=== PATIENT | male | born 1990 | race Caucasian/White ===

== ENCOUNTER 2017-12-10 08:45 | Emergency (ER) | payer OTHER ==
[2017-12-10 08:53] VITALS: BP 128/68
[2017-12-10] MEDS ORDERED: cefTRIAXone VIAL(*) 1,000 MG VIAL IM ONE (10:20)
[2017-12-10] MEDS ORDERED: Lidocaine 1% MPF* 2 ML VIAL INJ ONE (10:21)
--- NOTE | 2017-12-10 10:22 | UC ---
General HPI - HPI Summary HPI Summary: here for a rocephin shot he is on a 7 day course of Rocephin for treatment of Gonorrhea-- - History of Current Complaint Chief Complaint: UCGeneralIllness Stated Complaint: MEDICATION Time Seen by Provider: 12/10/17 10:17 Hx Obtained From: Patient Onset Severity: Moderate - Allergy/Home Medications Allergies/Adverse Reactions: Allergies Allergy/AdvReac Type Severity Reaction Status Date / Time Sulfa Antibiotics Allergy Rash Verified 12/10/17 08:50 Home Medications: Home Medications Tenofovir/Emtricitabine(*) [Truvada*] 1 tab PO DAILY 12/10/17 [History Confirmed 12/10/17] PMH/Surg Hx/FS Hx/Imm Hx Previously Healthy: Yes - Surgical History Surgical History: None - Family History Known Family History: Positive: None - Social History Occupation: Student Lives: Alone Alcohol Use: Weekly Substance Use Type: None Smoking Status (MU): Never Smoked Tobacco Review of Systems Constitutional: Negative Skin: Negative Eyes: Negative ENT: Negative Respiratory: Negative Cardiovascular: Negative Gastrointestinal: Negative Genitourinary: Negative Motor: Negative Neurovascular: Negative Musculoskeletal: Negative Neurological: Negative Psychological: Negative Is Patient Immunocompromised?: No All Other Systems Reviewed And Are Negative: Yes Physical Exam Triage Information Reviewed: Yes Appearance: Well-Appearing, No Pain Distress, Well-Nourished Vital Signs: Initial Vital Signs Temp 98 F 12/10/17 08:51 Pulse 60 12/10/17 08:51 Resp 16 12/10/17 08:51 BP 128/68 12/10/17 08:51 Pulse Ox 100 12/10/17 08:51 Vital Signs Reviewed: Yes Eye Exam: Normal Eyes: Positive: Conjunctiva Clear ENT Exam: Normal ENT: Positive: Normal ENT inspection, Hearing grossly normal. Negative: Trismus , Muffled voice, Hoarse voice Dental Exam: Normal Neck exam: Normal Neck: Positive: Supple, Nontender Respiratory Exam: Normal Respiratory: Positive: No respiratory distress, No accessory muscle use Cardiovascular Exam: Normal Cardiovascular: Positive: Pulses Normal, Brisk Capillary Refill Musculoskeletal Exam: Normal Musculoskeletal: Positive: Strength Intact, ROM Intact, No Edema Neurological Exam: Normal Neurological: Positive: Alert, Muscle Tone Normal Psychological Exam: Normal Skin Exam: Normal Course/Dx - Course Course Of Treatment: Rocephin as recommended follow at [facility] for remaining course of treatment - Differential Dx - Multi-Symptom Provider Diagnoses: STD Treatment Discharge - Discharge Plan Condition: Stable Disposition: HOME Patient Education Materials: Ceftriaxone (By injection) Referrals: [facility] [Outside] - 1 Day Additional Instructions: Continue daily antibiotics as planned----
== END 2017-12-10 10:43 | disposition home or self-care (01) ==
LOC: UCEAST 08:45
DX: A54.9 Gonococcal infection, unspecified (principal); Z88.2 Allergy status to sulfonamides
CPT/HCPCS: 96372; 99202; G0463; J0696